=== PATIENT | female | born 1980 | race Caucasian/White ===

== ENCOUNTER 2017-03-03 18:56 | Emergency (ER) | payer OTHER ==
[~2017-03-03] VITALS: Ht 152.4 cm; Wt 81.0 kg
[~2017-03-03 18:56] MED LIST: FLEXERIL10 MG PO; NAPROSYN500 MG PO; ULTRAM50 MG PO; VALIUM5 MG PO; VYVANSE40 MG PO
[2017-03-03 19:35] VITALS: BP 133/92
== END 2017-03-03 19:42 | disposition home or self-care (01) ==
LOC: EME 18:56
DX: N63 Unspecified lump in breast (principal); Z80.1 Family history of malignant neoplasm of trachea, bronchus and lung; Z87.891 Personal history of nicotine dependence; Z97.5 Presence of (intrauterine) contraceptive device
CPT/HCPCS: 99281; 99283

== ENCOUNTER 2018-02-20 18:34 | Emergency (ER) | payer OTHER ==
[~2018-02-20] VITALS: Ht 152.4 cm; Wt 78.7 kg
[2018-02-20 19:56] LABS: APPEARANCE CLEAR ((CLEAR)); BILIRUBIN NEGATIVE; BLOOD MODERATE; COLOR STRAW ((YELLOW)); GLUCOSE (STRIP) NEGATIVE; KETONES NEGATIVE; LEUKOCYTES NEGATIVE; NITRITE NEGATIVE; PROTEIN (STRIP) NEGATIVE; SPECIFIC GRAVITY 1.011 (1.000-1.030); UROBILINOGEN 0.2 MG/DL (0.2-1.0)
[2018-02-20 20:03] LABS: BACTERIA RARE /HPF; EPITHELIAL CELLS RARE /HPF; MUCUS TRACE /LPF; RED BLOOD CELLS 0-5 /HPF (0-5); UCUL ADDED? NO; WHITE BLOOD CELLS 0-5 /HPF (0-5)
[2018-02-20 21:26] LABS: CHLORIDE 105 mEq/L (99-109); POTASSIUM 3.8 mEq/L (3.7-5.4)
[2018-02-20 21:27] LABS: MAGNESIUM 2.4 mg/dL (1.3-2.7); SODIUM 140 mEq/L (136-147)
[2018-02-20 21:28] LABS: GLUCOSE 99 mg/dL (70-99)
[2018-02-20 21:32] LABS: CREATININE 0.8 mg/dL (0.6-1.3); GFR ESTIMATE (CALCULATED) > 59 mL/min/
[2018-02-20 21:33] LABS: UREA NITROGEN (BUN) 12 mg/dL (9-23)
[2018-02-20 21:36] LABS: BASOPHIL (%) 0.5 % (0-1); BASOPHIL COUNT 0.1 K/uL (0-0.1); EOSINOPHIL (%) 0.9 % (0-5); EOSINOPHIL COUNT 0.1 K/uL (0-0.3); HEMATOCRIT 41.9 % (36.0-46.0); HEMOGLOBIN 14.1 G/DL (11.9-15.5); IMMATURE GRANULOCYTE (%) 0.4 % (0.0-0.7); LYMPHOCYTE (%) 23.9 % (15-42); LYMPHOCYTE COUNT 2.8 K/uL (1.0-2.8); MCH 31.8 PG (29.0-34.0); MCHC 33.7 G/DL (30.0-36.0); MCV 94.4 FL (83-99); MONOCYTE (%) 6.8 % (3-12); MONOCYTE COUNT 0.8 K/uL (0-0.8); NEUTROPHIL (%) 67.5 % (45-76); NEUTROPHIL COUNT 7.9 K/uL (1.8-6.4); PLATELET COUNT 325 K/uL (156-360); RBC DIS.WIDTH-CV 13.3 % (11.8-14.6); RBC DIS.WIDTH-SD 46.4 % (39-53); RED BLOOD COUNT 4.44 M/uL (3.80-5.20); WHITE BLOOD COUNT 11.8 K/uL (4.1-10.2)
[2018-02-20] MEDS ORDERED: MOTRIN600 MG PO (22:53)
[2018-02-20] MEDS ORDERED: ZOFRAN ODT4 MG PO (22:53)
[2018-02-20 23:18] VITALS: BP 126/78
== END 2018-02-20 23:18 | disposition home or self-care (01) ==
LOC: EME 18:34
PROVIDERS: Emergency Medicine
DX: E86.0 Dehydration (principal); R10.31 Right lower quadrant pain; R10.32 Left lower quadrant pain; F17.200 Nicotine dependence, unspecified, uncomplicated
CPT/HCPCS: 80048; 81003; 81025; 83630; 83735; 85025; J1885; J7040